=== PATIENT | female | born 1945 | race Caucasian/White ===

== ENCOUNTER 2017-12-16 05:47 | Observation (INO) | payer MEDICARE ==
[~2017-12-16] VITALS: Ht 154.9 cm; Wt 73.0 kg
[2017-12-16] VITALS (8 sets, daily range): BP systolic 110–134; BP diastolic 54–78; PULSE 71–87; RESP 15–18; TEMP 98.1–98.6; O2SAT 96–100
[~2017-12-16 05:47] MED LIST: AMLO5TAB96 PO; BIOT5000 PO; CO Q10CA PO; FERR324T4 PO; FLUO-1 PO; LEVO75TA3 PO; LORA-474 PO; LOVA40TA PO; MSM1000C4 PO; PRAM1 PO; PROT40TA PO; SUCR1S PO; SUCR1TAB PO; TOPR50TA PO; VITA100020 PO; VITA400T2 PO; XANA1TAB6 PO; ZOLE5P IV
[2017-12-16] MEDS ORDERED: GLUC15009 PO (06:13)
[2017-12-16] MEDS ORDERED: AZO-450T (06:13)
[2017-12-16] MEDS ORDERED: PRAM1TAB PO (06:13)
[2017-12-16] MEDS ORDERED: BIOTCAP PO (06:13)
[2017-12-16] MEDS ORDERED: AMLO10TA2 PO (06:13)
[2017-12-16] MEDS ORDERED: CIPR250T52 PO (06:13)
[2017-12-16] MEDS ORDERED: ATOR40TA16 PO (06:13)
[2017-12-16] MEDS ORDERED: LEVO75TA3 PO (06:13)
[2017-12-16] MEDS ORDERED: CITRTAB7 PO (06:13)
[2017-12-16] MEDS ORDERED: TEMA15CA PO (06:13)
[2017-12-16] MEDS ORDERED: PANTOPRAZOLE SODIUM 40 MG VIAL IVP ONE (06:15)
[2017-12-16] MEDS ORDERED: SODIUM CHLORIDE 0.9% FLUSH 10 ML FLUSH IV FLUSH PRN (06:15)
[2017-12-16] MEDS ORDERED: ONDANSETRON HCL 4 MG/2 ML VIAL IVP ONE (06:15)
[2017-12-16] MEDS ORDERED: SODIUM CHLOR 0.9% 1000 ML INJ 1,000 ML IV SCH ×2 (06:15→10:00)
[2017-12-16] MEDS ORDERED: SODIUM CHLORIDE 0.9% FLUSH 10 ML FLUSH IVF PRN (06:15)
--- NOTE | 2017-12-16 06:21 | PD ---
HPI Chief Complaint: GI Complaint Time Seen by Provider: 06:15 Travel History International Travel<30 days: No Contact w/Intl Traveler<30days: No Traveled to known affect area: No History of Present Illness HPI 72-year-old female patient with history of hypothyroidism, hypertension, gastric ulcer, had a cystoscopy and biopsy done for hematuria Sunday by Dr. Richards , yesterday started having abdominal cramping pains and diarrhea, noted that she had blood in her stools. She's been nauseous. She denies any fevers or any other symptoms. She denies any pain currently. She is not on any blood thinning medications Modifying Factors: None Associated Signs & Symptoms: Nausea, abdominal cramps, diarrhea, blood in the stools Risk Factors: History of gastric ulcer PFSH Past Medical History Arthritis: Yes Anxiety: Yes Depression: Yes Cancer: No Cardiovascular Problems: Yes (HTN, ) High Cholesterol: Yes Diabetes: No Diminished Hearing: No Endocrine: Yes Gastrointestinal Disorders: Yes GERD: Yes Genitourinary: No Hiatal Hernia: Yes (2011) Hypertension: Yes Immune Disorder: No Implanted Vascular Access Dvce: Yes Musculoskeletal: Yes Neurologic: Yes (RESTLESS LEG SYND) Psychiatric: Yes Reproductive: No Respiratory: No Sleep Apnea: Yes (CPAP) Thyroid Disease: Yes Ulcer: Yes Tetanus Vaccination: Unknown Influenza Vaccination: Yes Menopausal: Yes Past Surgical History Abdominal Surgery: Yes (GASTRIC BYPASS JUL 2012) AICD: No Body Medical Devices: RIGHT FOOT HARDWARE Gynecologic Surgery: Yes (HYSTERECTOMY) Hysterectomy: Yes Joint Replacement: No Oral Surgery: Yes (TONSILECTOMY) Pacemaker: No Tonsillectomy: Yes (CHILDHOOD) Other Surgery: Yes (BREAST REDUCTION AND TUMMY TUCK IN 1997) Social History Alcohol Use: Yes (OCC) Tobacco Use: No Substance Use: No Allergies-Medications (Allergen,Severity, Reaction): Coded Allergies: No Known Allergies (Verified Adverse Reaction, Unknown, 12/16/17) Reported Meds & Prescriptions Reported Meds & Active Scripts Active Reported Temazepam 15 Mg Cap 15 Mg PO HS PRN Glucosamine 1,500 Mg Tab 1,500 Mg PO DAILY Biotin 5 Mg Cap 5 Mg PO Citracal + D3 Maximum (Calcium Citrate-Vitamin D) 315-250 Mg-Unit Tab 1 Tab PO BID Atorvastatin (Atorvastatin Calcium) 40 Mg Tab 40 Mg PO HS Levothyroxine (Levothyroxine Sodium) 75 Mcg Tab 75 Mcg PO DAILY Pramipexole (Pramipexole Dihydrochloride) 1 Mg Tab 1 Mg PO HS Amlodipine (Amlodipine Besylate) 10 Mg Tab 10 Mg PO DAILY Cipro (Ciprofloxacin HCl) 250 Mg Tab 250 Mg PO BID Review of Systems Except as stated in HPI: all other systems reviewed are Neg Physical Exam Narrative GENERAL: Well-developed elderly white female patient currently in mild distress. Awake and oriented 3. SKIN: Focused skin assessment warm/dry. HEAD: Atraumatic. Normocephalic. EYES: Pupils equal and round. No scleral icterus. No injection or drainage. ENT: No nasal bleeding or discharge. Mucous membranes pink and moist. NECK: Trachea midline. No JVD. Supple. CARDIOVASCULAR: Regular rate and rhythm. No murmur appreciated. RESPIRATORY: No accessory muscle use. Clear to auscultation. Breath sounds equal bilaterally. GASTROINTESTINAL: Abdomen soft, non-tender, nondistended. Hepatic and splenic margins not palpable. RECTAL EXAM: No masses or tenderness, stool is reddish brown. Hemoccult positive. MUSCULOSKELETAL: No obvious deformities. No clubbing. No cyanosis. No edema. NEUROLOGICAL: Awake and alert. No obvious cranial nerve deficits. Motor grossly within normal limits. Normal speech. PSYCHIATRIC: Appropriate mood and affect; insight and judgment normal. Data Data Last Documented VS Vital Signs Date Time Temp Pulse Resp B/P (MAP) Pulse Ox O2 Delivery O2 Flow Rate FiO2 12/16/17 05:48 98.5 87 16 132/78 (96) 98 Room Air Orders Orders Complete Blood Count With Diff (12/16/17 06:08) Comprehensive Metabolic Panel (12/16/17 06:08) Lipase (12/16/17 06:08) Urinalysis - C+S If Indicated (12/16/17 06:08) Iv Access Insert/Monitor (12/16/17 06:08) Ecg Monitoring (12/16/17 06:08) Oximetry (12/16/17 06:08) Sodium Chloride 0.9% Flush (Ns Flush) (12/16/17 06:15) Prothrombin Time / Inr (Pt) (12/16/17 06:15) Act Partial Throm Time (Ptt) (12/16/17 06:15) Type And Screen (12/16/17 06:15) Ondansetron Inj (Zofran Inj) (12/16/17 06:15) Pantoprazole Inj (Protonix Inj) (12/16/17 06:15) Sodium Chlor 0.9% 1000 Ml Inj (Ns 1000 M (12/16/17 06:15) Sodium Chloride 0.9% Flush (Ns Flush) (12/16/17 06:15) Ct Abd/Pel W Iv Contrast(Rout) (12/16/17 06:18) Labs Laboratory Tests Test 12/16/17 06:15 White Blood Count 11.4 TH/MM3 Red Blood Count 4.92 MIL/MM3 Hemoglobin 13.7 GM/DL Hematocrit 42.3 % Mean Corpuscular Volume 85.8 FL Mean Corpuscular Hemoglobin 27.8 PG Mean Corpuscular Hemoglobin Concent 32.4 % Red Cell Distribution Width 15.2 % Platelet Count 294 TH/MM3 Mean Platelet Volume 8.1 FL Neutrophils (%) (Auto) 82.4 % Lymphocytes (%) (Auto) 9.2 % Monocytes (%) (Auto) 7.4 % Eosinophils (%) (Auto) 0.3 % Basophils (%) (Auto) 0.7 % Neutrophils # (Auto) 9.4 TH/MM3 Lymphocytes # (Auto) 1.1 TH/MM3 Monocytes # (Auto) 0.8 TH/MM3 Eosinophils # (Auto) 0.0 TH/MM3 Basophils # (Auto) 0.1 TH/MM3 CBC Comment DIFF FINAL Differential Comment MDM Medical Decision Making Medical Screen Exam Complete: Yes Emergency Medical Condition: Yes Medical Record Reviewed: Yes Interpretation(s) Laboratory Tests Test 12/16/17 06:15 White Blood Count 11.4 TH/MM3 (4.0-11.0) Neutrophils (%) (Auto) 82.4 % (16.0-70.0) Neutrophils # (Auto) 9.4 TH/MM3 (1.8-7.7) Differential Diagnosis GI bleed versus gastroenteritis versus perforation Narrative Course Patient is given Protonix, Zofran, and lab work and CAT scan was ordered for further evaluation. She is Hemoccult positive. HemaPrompt Point of Care Internal Pos. & Neg. Controls: Passed Fecal Specimen Occult Blood: Positive Physician Communication Physician Communication Case is signed out to oncoming physician at 7 AM pending workup. Disposition based on workup. Diagnosis Primary Impression: GI bleed Soontharothai,Rewadee MD Dec 16, 2017 06:21
[2017-12-16 06:46] LABS: AUTOMATED NEUTROPHIL # 9.4 TH/MM3 (1.8-7.7); BASOPHIL # 0.1 TH/MM3 (0-0.2); BASOPHIL % 0.7 % (0.0-2.0); EOSINOPHIL % 0.3 % (0.0-4.0); HEMATOCRIT 42.3 % (35.0-46.0); HEMOGLOBIN 13.7 GM/DL (11.6-15.3); LYMPH % 9.2 % (9.0-44.0); LYMPHOCYTE # 1.1 TH/MM3 (1.0-4.8); MEAN CELL VOLUME 85.8 FL (80.0-100.0); MEAN CORPUSCULAR HEMOGLOBIN 27.8 PG (27.0-34.0); MEAN CORPUSCULAR HGB CONC 32.4 % (32.0-36.0); MEAN PLATELET VOLUME 8.1 FL (7.0-11.0); MONO % 7.4 % (0.0-8.0); MONOCYTE # 0.8 TH/MM3 (0-0.9); NEUT % 82.4 % (16.0-70.0); PLATELET COUNT 294 TH/MM3 (150-450); RED BLOOD COUNT 4.92 MIL/MM3 (4.00-5.30); RED CELL DISTRIBUTION WIDTH 15.2 % (11.6-17.2); WHITE BLOOD COUNT 11.4 TH/MM3 (4.0-11.0)
[2017-12-16 07:00] LABS: PROTHROMBIN TIME - PATIENT 10.1 SEC (9.8-11.6)
[2017-12-16 07:14] LABS: BACTERIA, URINE FEW /hpf; BLOOD, URINE MOD (NEG); GLUCOSE,URINE NEG (NEG); HYALINE CAST, URINE 23 /lpf (RARE); KETONE, URINE NEG (NEG); MUCUS URINE MANY /lpf (OCC); NITRITE,URINE NEG (NEG); PH, URINE 5.5 (5.0-8.5); SQUAMOUS EPITHELIAL CELL URINE 12 /hpf (0-5); URINE COLOR YELLOW (YELLW/STRAW); URINE LEUKOCYTE ESTERASE LARGE (NEG)
[2017-12-16 07:17] LABS: BILIRUBIN, URINE NEG (NEG)
[2017-12-16 07:18] LABS: ALT (GPT) 30 U/L (10-53); AST (GOT) 23 U/L (15-37); BICARBONATE 27.5 MEQ/L (21.0-32.0); BLOOD UREA NITROGEN 24 MG/DL (7-18); CALCIUM 8.8 MG/DL (8.5-10.1); CHLORIDE 101 MEQ/L (98-107); GLUCOSE,RANDOM 136 MG/DL (74-106); LIPASE 134 U/L (73-393); SODIUM (NA) 136 MEQ/L (136-145)
[2017-12-16 07:20] LABS: ALKALINE PHOSPHATASE 76 U/L (45-117); CREATININE 1.21 MG/DL (0.50-1.00); GLOMERULAR FILTRATION RATE 43 ML/MIN (>89); TOTAL BILIRUBIN ADULT 0.6 MG/DL (0.2-1.0)
[2017-12-16] MEDS ORDERED: IOHEXOL 350 MG/ML 10 ML VIAL (for RAD DIAG) IVCONTRAST ONE (07:40)
[2017-12-16] MEDS ORDERED: cefTRIAXone INJ 1,000 MG in SODIUM CHLORIDE 0.9% INJ 100 ML IV ONE (07:45)
--- NOTE | 2017-12-16 07:57 | RADRPT ---
EXAM DATE/TIME: 12/16/2017 07:33 [facility] COMPARISON: No previous studies available for comparison. INDICATIONS : Nausea, bloody loose stool, post cystoscopy and biopsy 2 days ago. IV CONTRAST: 75 cc Omnipaque 350 (iohexol) IV ORAL CONTRAST: No oral contrast ingested. RADIATION DOSE: 9.43 CTDIvol (mGy) MEDICAL HISTORY : Hypertension. Gastroesophageal reflux disease. Chronic UTI's SURGICAL HISTORY : Hysterectomy. Gastric bypass, Breast reduction, tummy tuck ENCOUNTER: Initial ACUITY: 1 day PAIN SCALE: 6/10 LOCATION: abdomen TECHNIQUE: Volumetric scanning of the abdomen and pelvis was performed. Using automated exposure control and ad justment of the mA and/or kV according to patient size, radiation dose was kept as low as reasonably achievable to obtain optimal diagnostic quality images. DICOM format image data is available electro nically for review and comparison. FINDINGS: LOWER LUNGS: The visualized lower lungs are clear. LIVER: Homogeneous density without lesion. There is no dilation of the biliary tree. No calcified gallston es. SPLEEN: Normal size without lesion. PANCREAS: Within normal limits. KIDNEYS: Normal in size and shape. There is no mass, stone or hydronephrosis. ADRENAL GLANDS: Within normal limits. VASCULAR: Scattered other sclerosis. No evidence of aneurysm. BOWEL/MESENTERY: There is mild asymmetric wall thickening identified within the descending colon and sigmoid colon wit h mild asymmetric prominence of the vasculature within the mesentery adjacent to the descending and s igmoid colon. Findings are suggestive of inflammation or infection. The patient is status post prior gastric bypass. There is a small hiatal hernia present. The small bowel is unremarkable. ABDOMINAL WALL: Within normal limits. RETROPERITONEUM: There is no lymphadenopathy. BLADDER: No wall thickening or mass. REPRODUCTIVE: Uterus and ovaries are not visualized consistent with prior hysterectomy INGUINAL: There is no lymphadenopathy or hernia. MUSCULOSKELETAL: Degenerative changes.. CONCLUSION: Low prominence of the basal rectum involving the descending and sigmoid colon consistent with inflamm ation versus infection. No evidence of focal wall thickening, mass or abscess. Prema Wiley MD on December 16, 2017 at 7:47 Board Certified Radiologist. This report was verified electronically.
[2017-12-16] MEDS ORDERED: metroNIDAZOLE 500 MG INJ 100 ML IV ONE (08:15)
--- NOTE | 2017-12-16 08:56 | PD ---
Physical Exam Narrative GENERAL: Well-nourished, well-developed patient. SKIN: Warm and dry. HEAD: Normocephalic and atraumatic. EYES: No injection or drainage. ENT: No nasal drainage noted. NECK: Supple, trachea midline. CARDIOVASCULAR: Regular rate and rhythm RESPIRATORY: no increased effort. No accessory muscle use. GASTROINTESTINAL: Abdomen nondistended. NEUROLOGICAL: Awake and alert. moves all extremities and sensory grossly within normal limits. Normal speech. Data Data Last Documented VS Vital Signs Date Time Temp Pulse Resp B/P (MAP) Pulse Ox O2 Delivery O2 Flow Rate FiO2 12/16/17 07:14 81 16 127/62 (83) 100 12/16/17 05:48 98.5 Room Air Orders Orders Complete Blood Count With Diff (12/16/17 06:08) Comprehensive Metabolic Panel (12/16/17 06:08) Lipase (12/16/17 06:08) Urinalysis - C+S If Indicated (12/16/17 06:08) Iv Access Insert/Monitor (12/16/17 06:08) Ecg Monitoring (12/16/17 06:08) Oximetry (12/16/17 06:08) Sodium Chloride 0.9% Flush (Ns Flush) (12/16/17 06:15) Prothrombin Time / Inr (Pt) (12/16/17 06:15) Act Partial Throm Time (Ptt) (12/16/17 06:15) Type And Screen (12/16/17 06:15) Ondansetron Inj (Zofran Inj) (12/16/17 06:15) Pantoprazole Inj (Protonix Inj) (12/16/17 06:15) Sodium Chlor 0.9% 1000 Ml Inj (Ns 1000 M (12/16/17 06:15) Sodium Chloride 0.9% Flush (Ns Flush) (12/16/17 06:15) Ct Abd/Pel W Iv Contrast(Rout) (12/16/17 06:18) Urine Culture (12/16/17 06:40) Ceftriaxone Inj (Rocephin Inj) (12/16/17 07:45) Iohexol 350 Inj (Omnipaque 350 Inj) (12/16/17 07:40) Metronidazole 500 Mg Inj (Flagyl 500 Mg (12/16/17 08:15) Admit Order (Ed Use Only) (12/16/17 08:48) Labs Laboratory Tests Test 12/16/17 06:15 12/16/17 06:40 White Blood Count 11.4 TH/MM3 Red Blood Count 4.92 MIL/MM3 Hemoglobin 13.7 GM/DL Hematocrit 42.3 % Mean Corpuscular Volume 85.8 FL Mean Corpuscular Hemoglobin 27.8 PG Mean Corpuscular Hemoglobin Concent 32.4 % Red Cell Distribution Width 15.2 % Platelet Count 294 TH/MM3 Mean Platelet Volume 8.1 FL Neutrophils (%) (Auto) 82.4 % Lymphocytes (%) (Auto) 9.2 % Monocytes (%) (Auto) 7.4 % Eosinophils (%) (Auto) 0.3 % Basophils (%) (Auto) 0.7 % Neutrophils # (Auto) 9.4 TH/MM3 Lymphocytes # (Auto) 1.1 TH/MM3 Monocytes # (Auto) 0.8 TH/MM3 Eosinophils # (Auto) 0.0 TH/MM3 Basophils # (Auto) 0.1 TH/MM3 CBC Comment DIFF FINAL Differential Comment Prothrombin Time 10.1 SEC Prothromb Time International Ratio 1.0 RATIO Activated Partial Thromboplast Time 26.0 SEC Blood Urea Nitrogen 24 MG/DL Creatinine 1.21 MG/DL Random Glucose 136 MG/DL Total Protein 8.0 GM/DL Albumin 4.0 GM/DL Calcium Level 8.8 MG/DL Alkaline Phosphatase 76 U/L Aspartate Amino Transf (AST/SGOT) 23 U/L Alanine Aminotransferase (ALT/SGPT) 30 U/L Total Bilirubin 0.6 MG/DL Sodium Level 136 MEQ/L Potassium Level 4.1 MEQ/L Chloride Level 101 MEQ/L Carbon Dioxide Level 27.5 MEQ/L Anion Gap 8 MEQ/L Estimat Glomerular Filtration Rate 43 ML/MIN Lipase 134 U/L Urine Color YELLOW Urine Turbidity HAZY Urine pH 5.5 Urine Specific [place] 1.028 Urine Protein 30 mg/dL Urine Glucose (UA) NEG mg/dL Urine Ketones NEG mg/dL Urine Occult Blood MOD Urine Nitrite NEG Urine Bilirubin NEG Urine Urobilinogen 2.0 MG/DL Urine Leukocyte Esterase LARGE Urine RBC 41 /hpf Urine WBC 46 /hpf Urine Squamous Epithelial Cells 12 /hpf Urine Bacteria FEW /hpf Urine Hyaline Casts 23 /lpf Urine Granular Casts 3 /lpf Urine Mucus MANY /lpf Microscopic Urinalysis Comment CULTURE INDICATED MDM Supervised Visit with [facility]: No Interpretation(s) CBC & BMP Diagram 12/16/17 06:15 Total Protein 8.0, Albumin 4.0, Calcium Level 8.8, Alkaline Phosphatase 76, Aspartate Amino Transf (AST/SGOT) 23, Alanine Aminotransferase (ALT/SGPT) 30, Total Bilirubin 0.6 Last 24 hours Impressions Abdomen/Pelvis CT 12/16/17 0618 Signed Impressions: Service Date/Time: Saturday, December 16, 2017 07:33 - CONCLUSION: Low prominence of the basal rectum involving the descending and sigmoid colon consistent with inflammation versus infection. No evidence of focal wall thickening, mass or abscess. Prema Wiley MD Narrative Course On workup patient has elevation of BUN and creatinine and patient does not recall prior history of this. She was given IV fluids. CT shows inflammation versus infection of rectum. She was given ciprofloxacin and Flagyl. Dr. Cevallos is her GI specialist. She was updated and agrees to observation. Physician Communication Physician Communication dr colbert agrees to admit Diagnosis Primary Impression: GI bleed Qualified Codes: K92.2 - Gastrointestinal hemorrhage, unspecified Additional Impression: Renal insufficiency Admitting Information Admitting Physician Requests: Observation Jenniffer Saez MD Dec 16, 2017 08:56
[2017-12-16] MEDS ORDERED: ONDANSETRON HCL 4 MG/2 ML VIAL IV PUSH PRN (09:45)
[2017-12-16] MEDS ORDERED: MORPHINE SULFATE 4 MG/ML INJ IV PUSH PRN (09:45)
--- NOTE | 2017-12-16 10:04 | HHI.HP ---
[facility] Service [facility] Primary Care Physician Bridger Montes M.D. Admission Diagnosis rectal bleeding, renal insuffiency Diagnoses: (1) GI bleed Travel History International Travel<30 Days: No Contact w/Intl Traveler <30 Da: No Traveled to Known Affected Are: No History of Present Illness 72F with onset of bright red blood per rectum that began yesterday evening and persisted through the night. She had a cystoscopy on Sunday and is concerned for perforated bladder, though work up so far does not seem to indicate that. She has a distant history of bleeding stomach ulcers that required transfusion, but the pattern of bleeding including dripping onto floor and bloody diarrhea seems to indicate rectal bleeding this time. She denies any severe abdominal pain, denies dyspnea or chest pain. Diagnosed with UTI as outpatient, taking Cipro 250mg on home meds. Patient states she is established with [facility]. Review of Systems Constitutional: DENIES: Fever Endocrine: DENIES: Polydipsia, Polyuria Eyes: DENIES: Blurred vision, Diplopia, Vision loss Ears, nose, mouth, throat: DENIES: Tinnitus, Vertigo, Epistaxis Respiratory: DENIES: Hemoptysis Cardiovascular: DENIES: Chest pain, Palpitations, Syncope Gastrointestinal: COMPLAINS OF: Abdominal pain, Bloody stools, Diarrhea, DENIES : Black stools, Constipation, Nausea, Vomiting Musculoskeletal: DENIES: Joint pain, Stiffness Integumentary: DENIES: Rash Hematologic/lymphatic: DENIES: Bruising, Lymphadenopathy Neurologic: DENIES: Abnormal gait, Localized weakness, Poor Balance Psychiatric: DENIES: Anxiety, Confusion, Mood changes Past Family Social History Past Medical History Hypertension Dislipidemia Restless Leg Syndrome Past Surgical History Right Foot Fusion 2010 Hysterectomy 1988 Breast Reduction w/ Tummy Ashok Allergies: Coded Allergies: No Known Allergies (Verified Allergy, Unknown, 12/16/17) Family History Osteoarthritis Social History Denies tobacco or alcohol use Physical Exam Vital Signs Vital Signs Date Time Temp Pulse Resp B/P (MAP) Pulse Ox O2 Delivery O2 Flow Rate FiO2 12/16/17 09:33 73 15 110/57 (74) 100 Room Air 1/28/18 07:14 81 16 127/62 (83) 100 12/16/17 05:48 98.5 87 16 132/78 (96) 98 Room Air Physical Exam GENERAL: This is a well-nourished, well-developed patient, in no apparent distress. SKIN: No rashes, ecchymoses or lesions. Cool and dry. HEAD: Atraumatic. Normocephalic. No temporal or scalp tenderness. EYES: Pupils equal round and reactive. Extraocular motions intact. No scleral icterus. No injection or drainage. ENT: Nose without bleeding, purulent drainage or septal hematoma. Throat without erythema, tonsillar hypertrophy or exudate. Uvula midline. Airway patent. NECK: Trachea midline. No JVD or lymphadenopathy. Supple, nontender, no meningeal signs. CARDIOVASCULAR: Regular rate and rhythm without murmurs, gallops, or rubs. RESPIRATORY: Clear to auscultation. Breath sounds equal bilaterally. No wheezes , rales, or rhonchi. GASTROINTESTINAL: Abdomen soft, non-tender, nondistended. No hepato-splenomegaly , or palpable masses. No guarding. MUSCULOSKELETAL: Extremities without clubbing, cyanosis, or edema. No joint tenderness, effusion, or edema noted. No calf tenderness. Negative Homans sign bilaterally. NEUROLOGICAL: Awake and alert. Cranial nerves II through XII intact. Motor and sensory grossly within normal limits. Five out of 5 muscle strength in all muscle groups. Normal speech. Laboratory Laboratory Tests Test 12/16/17 06:15 12/16/17 06:40 White Blood Count 11.4 Red Blood Count 4.92 Hemoglobin 13.7 Hematocrit 42.3 Mean Corpuscular Volume 85.8 Mean Corpuscular Hemoglobin 27.8 Mean Corpuscular Hemoglobin Concent 32.4 Red Cell Distribution Width 15.2 Platelet Count 294 Mean Platelet Volume 8.1 Neutrophils (%) (Auto) 82.4 Lymphocytes (%) (Auto) 9.2 Monocytes (%) (Auto) 7.4 Eosinophils (%) (Auto) 0.3 Basophils (%) (Auto) 0.7 Neutrophils # (Auto) 9.4 Lymphocytes # (Auto) 1.1 Monocytes # (Auto) 0.8 Eosinophils # (Auto) 0.0 Basophils # (Auto) 0.1 CBC Comment DIFF FINAL Differential Comment Prothrombin Time 10.1 Prothromb Time International Ratio 1.0 Activated Partial Thromboplast Time 26.0 Blood Urea Nitrogen 24 Creatinine 1.21 Random Glucose 136 Total Protein 8.0 Albumin 4.0 Calcium Level 8.8 Alkaline Phosphatase 76 Aspartate Amino Transf (AST/SGOT) 23 Alanine Aminotransferase (ALT/SGPT) 30 Total Bilirubin 0.6 Sodium Level 136 Potassium Level 4.1 Chloride Level 101 Carbon Dioxide Level 27.5 Anion Gap 8 Estimat Glomerular Filtration Rate 43 Lipase 134 Urine Color YELLOW Urine Turbidity HAZY Urine pH 5.5 Urine Specific [place] 1.028 Urine Protein 30 Urine Glucose (UA) NEG Urine Ketones NEG Urine Occult Blood MOD Urine Nitrite NEG Urine Bilirubin NEG Urine Urobilinogen 2.0 Urine Leukocyte Esterase LARGE Urine RBC 41 Urine WBC 46 Urine Squamous Epithelial Cells 12 Urine Bacteria FEW Urine Hyaline Casts 23 Urine Granular Casts 3 Urine Mucus MANY Microscopic Urinalysis Comment CULTURE INDICATED Date/Time Source Procedure Growth Status 12/16/17 06:40 Urine Clean Catch Urine Culture Pending Received Result Diagram: 12/16/1761412/16/17614 Imaging Last Impressions Abdomen/Pelvis CT 12/16/17617 Signed Impressions: Service Date/Time: Saturday, December 16, 2017 07:33 - CONCLUSION: Low prominence of the basal rectum involving the descending and sigmoid colon consistent with inflammation versus infection. No evidence of focal wall thickening, mass or abscess. MD Erika Zee VTE Risk Assessment Caprini VTE Risk Assessment: Mod/High Risk (score >= 2) Caprini Risk Assessment Model Point Value = 1 Point Value = 2 Point Value = 3 Point Value = 5 Age 41-60 Minor surgery BMI > 25 kg/m2 Swollen legs Varicose veins or History of unexplained or recurrent spontaneous Oral contraceptives or hormone replacement Sepsis (< 1 month) Serious lung disease, including pneumonia (< 1 month) Abnormal pulmonary function Acute myocardial infarction Congestive heart failure (< 1 month) History of inflammatory bowel disease Medical patient at bed rest Age 61-74 Arthroscopic surgery Major open surgery (> 45 min) Laparoscopic surgery (> 45 min) Malignancy Confined to bed (> 72 hours) Immobilizing plaster cast Central venous access Age >= 75 History of VTE Family history of VTE Factor V Leiden Prothrombin [id number] Lupus anticoagulant Anticardiolipin antibodies Elevated serum homocysteine Heparin-induced thrombocytopenia Other congenital or acquired thrombophilia Stroke (< 1 month) Elective arthroplasty Hip, pelvis, or leg fracture Acute spinal cord injury (< 1 month) Prophylaxis Regimen Total Risk Factor Score Risk Level Prophylaxis Regimen 0-1 Low Early ambulation 2 Moderate Order ONE of the following: *Sequential Compression Device (SCD) *Heparin 5000 units SQ BID 3-4 Higher Order ONE of the following medications: *Heparin 5000 units SQ TID *Enoxaparin/Lovenox 40 mg SQ daily (WT < 150 kg, CrCl > 30 mL/min) *Enoxaparin/Lovenox 30 mg SQ daily (WT < 150 kg, CrCl > 10-29 mL/min) *Enoxaparin/Lovenox 30 mg SQ BID (WT < 150 kg, CrCl > 30 mL/min) AND/OR *Sequential Compression Device (SCD) 5 or more Highest Order ONE of the following medications: *Heparin 5000 units SQ TID (Preferred with Epidurals) *Enoxaparin/Lovenox 40 mg SQ daily (WT < 150 kg, CrCl > 30 mL/min) *Enoxaparin/Lovenox 30 mg SQ daily (WT < 150 kg, CrCl > 10-29 mL/min) *Enoxaparin/Lovenox 30 mg SQ BID (WT < 150 kg, CrCl > 30 mL/min) AND *Sequential Compression Device (SCD) Assessment and Plan Problem List: (1) GI bleed ICD Code: K92.2 - Gastrointestinal hemorrhage, unspecified Status: Acute Assessment and Plan Rectal Bleed Significant blood loss at home, Hgb so far stable, no current bleeding CT points to thickening of rectal wall, irritation vs. infection GI consulted ([facility], Dr. Cevallos) Monitor H&H later today, then again in a.m. Clear Liquids ok for now, NPO overnight if colonoscopy planned for the a.m. Telemetry h/o Hypertension Monitor, IV meds if needed Resume PO meds when NPO lifted h/o Hypothyroidism, Dyslipidemia, Restless Leg Syndrome Resume home meds when NPO lifted DVT Prophylaxis SCD hose No anticoagulants due to current GI bleed Code Status Full Code Problem Qualifiers (1) GI bleed: Qualified Codes: K92.2 - Gastrointestinal hemorrhage, unspecified Reji Fisher MD Dec 16, 2017 10:04
[2017-12-16] MEDS ORDERED: PEG (High)/E-LYTE SOLN 4000 ML BTL PO ONE ×2 (13:15→17:30)
--- NOTE | 2017-12-16 13:48 | MB ---
cc: GALI GARCIA M.D., GREGORY A. MD HERDEL, GEORGE F. M.D. DATE OF : 1945 DATE OF CONSULTATION: 12/16/2017 REASON FOR CONSULTATION: HISTORY OF PRESENT ILLNESS: The patient is a 72-year-old white female well-known to me who underwent cystoscopy two days ago because of hematuria. She was given intravenous ciprofloxacin on that day and then was told to continue oral ciprofloxacin. Yesterday morning at about 11 o'clock she started having significant central and left lower abdominal pain with patches of loose stool followed by multiple episodes of bloody watery diarrheal stool, some chills and diaphoresis, but no fever. No prior episodes similar to this. She came into the hospital this morning and after receiving some intravenous fluids, antibiotics and pain medicine, she feels better now. No prior history similar to this. No history of colitis. Her last colonoscopy was performed almost five years ago because of a history of colon polyps. She is actually due for her routine colonoscopy in the near future. PAST MEDICAL HISTORY: Significant for: 1. Hypertension. 2. Hyperlipidemia. 3. Restless leg syndrome. PAST SURGICAL HISTORY: 1. Hysterectomy in 1987. 2. Breast reduction with a tummy tuck. 3. Right foot fusion in 2009. 4. Recent cystoscopy. 5. Gastric bypass in 2009. 6. Subsequent to that she did have some anastomotic ulcerations but she has been on Sucralfate ever since with no recurrence of problems and she avoids nonsteroidal anti-inflammatory drugs. MEDICATIONS Here in the hospital she was given: 1. Ceftriaxone. 2. Protonix 40 mg orally. 3. Amlodipine 10 milligrams. 4. Levothyroxine for hypothyroidism. 5. Atorvastatin for her hyperlipidemia. 6. Mirapex. 7. Morphine p.r.n. ALLERGIES None known to medications. SOCIAL HISTORY: Tobacco use none. Alcohol use none. FAMILY HISTORY Diverticular disease and osteoarthritis. REVIEW OF SYSTEMS She has had no headaches or vision difficulties. No seizures or strokes. No dysphagia or odynophagia. No early satiety or weight loss. No arthritic complaints. No rashes. No history of liver disease or diabetes. No pancreatic disorders. She has had no unexplained weight loss. PHYSICAL EXAMINATION Her weight is 73 kg, temperature 98.5, pulse 71, respiratory 15, blood pressure 134/63. Oxygen saturation 100% on room air. She is alert. She is oriented x3. She is anicteric. She has no appreciable distress at this time. HEENT: Extraocular motions are intact. She is anicteric. I appreciate no submandibular, cervical, supraclavicular, axillary or epitrochlear adenopathy. Lungs: Clear to auscultation. Heart: Heart exam, regular rate and rhythm with a 1-2/6 murmur. Abdominal exam: Good bowel sounds with no appreciable bruit. The abdomen is soft and nontender at this time. No masses or hepatosplenomegaly noted. Extremities: No pedal edema, Dupuytren's contractures or palmar erythema. LABORATORY STUDIES: This morning white count 11.4, hemoglobin 13.7, platelets 294, INR 1.0, sodium 136, potassium 4.1, BUN 24, creatinine 1.21. Liver enzymes and lipase all normal. Urinalysis: large amount of leukocyte esterase with 41 red cells and 46 white cells, 23 hyaline casts and increased protein excretion with moderate occult blood. IMAGING STUDIES: I reviewed the CT scan with the radiologist which shows thickening of the left colon, though the rectum itself is not thickened. IMPRESSION/PLAN Bloody diarrhea with abdominal pain in this patient who receives ciprofloxacin intravenously and orally. We discussed the small possibility of C. difficile colitis (about 5% of the time this will present with bloody diarrhea, but usually it is nonbloody). We discussed ischemic colitis, though she does not think she became dehydrated (although her BUN and creatinine are elevated suggesting a degree of dehydration as she has no history of chronic renal disorder). Food poisoning process with an organism causing hemorrhagic colitis is rare. She knows of no other contacts with similar symptoms after eating with her two days ago. At this point she will continue her intravenous fluids, will check stool for C. Difficile. Will schedule colonoscopy for tomorrow. I have reviewed the procedure with her, including potential risks of medication reaction, bleeding, perforation and a small chance of missing a lesion. She agrees to proceed with this plan. MD JAMES Blackwood/GUANAKO /12:56 PM /1:30 PM
[2017-12-16] MEDS ORDERED: ATORVASTATIN 40 MG TAB PO SCH (21:00)
[2017-12-16] MEDS ORDERED: PRAMIPEXOLE DIHYDROCHLORIDE 1 MG TAB PO SCH (21:00)
[2017-12-17 04:00] VITALS: BP 108/67; PULSE 58; RESP 18; TEMP 98.7; O2SAT 98
[2017-12-17] MEDS ORDERED: LEVOTHYROXINE SODIUM 75 MCG TAB PO SCH (06:00)
[2017-12-17 07:28] VITALS: BP 131/63; PULSE 97; RESP 18; TEMP 97.8; O2SAT 98
[2017-12-17] MEDS ORDERED: PEG (High)/E-LYTE SOLN 4000 ML BTL PO ONE (09:00)
[2017-12-17] MEDS ORDERED: PANTOPRAZOLE SOD 40 MG DELAYED RELEASE TAB PO SCH (09:00)
--- NOTE | 2017-12-17 09:58 | HHI.PR ---
Subjective Remarks Follow-up for bright red blood per rectum. Patient is currently doing well. She is preparing for colonoscopy. She has persistent diarrhea likely due to GoLYTELY use. No fever or chills. She denies any chest pain, shortness of breath. Denies any dysuria. She underwent cystoscopy due to hematuria recently prior to this hospitalization. Objective Vitals Vital Signs Date Time Temp Pulse Resp B/P (MAP) Pulse Ox O2 Delivery O2 Flow Rate FiO2 12/17/17 07:28 97.8 97 18 131/63 (85) 98 12/17/17 04:00 98.7 58 18 108/67 (81) 98 12/16/17 23:15 98.4 80 18 115/54 (74) 97 12/16/17 22:50 97 21 12/16/17 21:13 98.1 80 18 121/65 (83) 96 12/16/17 17:11 98.6 76 18 122/60 (80) 98 12/16/17 10:38 71 15 134/63 (86) 100 Room Air I/O 12/16/17 12/16/17 12/16/17 12/17/17 12/17/17 12/17/17 07:00 15:00 23:00 07:00 15:00 23:00 Intake Total 1200 ml Balance 1200 ml Intake IV Total 1200 ml Result Diagram: 12/16/17 1724 12/16/1715 Imaging Last Impressions Abdomen/Pelvis CT 12/16/1718 Signed Impressions: Service Date/Time: Saturday, December 16, 2017 07:33 - CONCLUSION: Low prominence of the basal rectum involving the descending and sigmoid colon consistent with inflammation versus infection. No evidence of focal wall thickening, mass or abscess. Prema Wiley MD Objective Remarks GENERAL: Alert, oriented 3, NAD. SKIN: Warm and dry. HEAD: Normocephalic. EYES: No scleral icterus. No injection or drainage. NECK: Supple, trachea midline. No JVD or lymphadenopathy. CARDIOVASCULAR: Regular rate and rhythm without murmurs, gallops, or rubs. RESPIRATORY: Breath sounds equal bilaterally. No accessory muscle use. GASTROINTESTINAL: Abdomen soft, non-tender, nondistended. MUSCULOSKELETAL: No cyanosis, or edema. BACK: Nontender without obvious deformity. No CVA tenderness. Procedures None A/P Problem List: (1) GI bleed ICD Code: K92.2 - Gastrointestinal hemorrhage, unspecified Status: Acute (2) Bacteriuria ICD Code: R82.71 - Bacteriuria Assessment and Plan Ms. Foster is a pleasant 72-year-old female with a recent cystoscopy for hematuria who presented to the emergency department on 12/16/2017 due to bright red blood per rectum. She also had significant left lower quadrant abdominal pain. GI evaluated patient and recommended colonoscopy. - Acute lower GI bleed - Patient's hemoglobin numbers are 13.7, 12.2. - Colonoscopy is scheduled today. - We checked C. Diff PCR which is Negative. - Protonix 40 mg daily - Acute kidney injury - Creatinine 1.21. Baseline below 1.0. - Continue gentle hydration with normal saline. - Bacteriuria - Patient does not report any dysuria. She recently underwent urological procedure - Continue ceftriaxone 1 g every 24 hours. - Hypertension - Hypothyroidism - Hyperlipidemia - Continue amlodipine 10 mg daily, levothyroxine 75 g every morning - Continue atorvastatin 40 mg daily at bedtime Full code. Ambulation. SCDs. Problem Qualifiers (1) GI bleed: Qualified Codes: K92.2 - Gastrointestinal hemorrhage, unspecified Cristy Redd DO Dec 17, 2017 9:58 am
[2017-12-17] MEDS ORDERED: cefTRIAXone INJ 1,000 MG in SODIUM CHLORIDE 0.9% INJ 100 ML IV SCH (10:00)
[2017-12-17 12:00] VITALS: BP 135/65; PULSE 81; RESP 20; TEMP 95.9; O2SAT 100
[2017-12-17] MEDS ORDERED: LACTATED RINGER'S 1000 ML IV PRN (15:15)
[2017-12-17] MEDS ORDERED: SODIUM CHLORID 0.9% 500 ML IV PRN (15:15)
[2017-12-17] MEDS ORDERED: CHLORHEXIDINE GLUCONATE 2 % 1 PACK (2 CLOTHS) TOPICAL PRN (15:15)
[2017-12-17] MEDS ORDERED: METOPROLOL TARTRATE 25 MG TAB PO PRN (15:15)
[2017-12-17] MEDS ORDERED: INSULIN HUMAN REGULAR 1,000 UNITS/10 ML VIAL SQ PRN (15:15)
[2017-12-17] MEDS ORDERED: POVIDONE IODINE 5% (ANTISEPSIS KIT) 4 APPLICATIONS EACH NARE PRN (15:15)
--- NOTE | 2017-12-17 15:32 | GIPROC ---
[facility] [address] [facility]. [facility], [address] COLONOSCOPY PROCEDURE REPORT EXAM DATE: 12/17/2017 PATIENT NAME: Barbara Foster MR #: [id number] BIRTHDATE: 1945 ENDOSCOPIST: Robe Cevallos MD ORDER #: [id number] BROKE MAN: STATUS: inpatient INDICATIONS: The patient is a 72 yr old female here for a colonoscopy due to painfjul, crampy, bloody diarrhea. PROCEDURE PERFORMED: Sigmoidoscopy, biopsy MEDICATIONS: Per Anesthesia. PREP QUALITY: good ESTIMATED BLOOD LOSS: None CONSENT: The patient understands the risks and benefits of the procedure and understands that these risks include, but are not limited to: sedation, allergic reaction, infection, perforation and/or bleeding. Alternative means of evaluation and treatment include, among others: physical exam, x-rays, and/or surgical intervention. The patient elects to proceed with this endoscopic procedure. medical equipment was checked for proper function. Hand hygiene and appropriate measures for infection prevention was taken. After the risks, benefits and alternatives of the procedure were thoroughly explained, Informed consent was verified, confirmed and timeout was successfully executed by the treatment team. A digital exam revealed no abnormalities of the rectum The Pentax [id number] endoscope was introduced through the anus and advanced to the sigmoid colon. The instrument was then slowly withdrawn as the colon was fully examined. COLON FINDINGS: Erythema, edema, shallow ulcerations were noted from 20cm to 40cm; the significant edema prevented further safe insertion of the (stiff Pentax) colonoscope. A diffuse circumferential patch of colitis was found in the sigmoid colon. The mucosa was edematous, erythematous, friable and ulcerated. This is consistent with ischemic colitis disease. Multiple biopsies of the area were performed using cold forceps. Retroflexion was performed and was normal The scope was then completely withdrawn from the patient and the procedure terminated. ADVERSE EVENTS: There were no complications. IMPRESSIONS: 1. Erythema, edema, shallow ulcerations were noted from 20cm to 40cm; the significant edema prevented further safe insertion of the (stiff Pentax) colonoscope 2. Diffuse circumferential colitis was found in the sigmoid colon; The mucosa was edematous, erythematous, friable and ulcerated; This is consistent with ischemic colitis.; multiple biopsies of the area were performed using cold forceps 3. Retroflexion was performed and was normal 4. Revealed no abnormalities of the rectum RECOMMENDATIONS: OK to D/C home on a low residue (low fiber) diet and with consumption of at least 2 quarts of liquid/day. Follow up with me in 2 weeks. RECALL: Robe Cevallos MD eSigned: Robe Cevallos MD 12/17/2017 3:31 PM cc: Suman Montes M.D.
[2017-12-17 16:00] VITALS: BP 161/72; PULSE 80; RESP 20; TEMP 95.3; O2SAT 100
[2017-12-17] MEDS ORDERED: CIPR250T52 PO (16:53)
[2017-12-17] MEDS ORDERED: PANT40TA3 PO (16:53)
--- NOTE | 2017-12-17 16:58 | HHI.DCPOC ---
Discharge Care Plan Diagnosis: (1) Colitis Goals to Promote Your Health * To prevent worsening of your condition and complications * To maintain your health at the optimal level Directions to Meet Your Goals Take your medications as prescribed Follow your dietary instruction Follow activity as directed Keep your appointments as scheduled Take your immunizations and boosters as scheduled If your symptoms worsen call your PCP, if no PCP go to Urgent Care Center or Emergency Room Smoking is Dangerous to Your Health. Avoid second hand smoke Call the 24-hour hour crisis hotline for domestic abuse at Tabitha Montiel PA-C Dec 17, 2017 16:58
== END 2017-12-17 18:14 | disposition home or self-care (01) ==
LOC: NEPC 05:47 → NEDA 08:50 → NEPFCDU 10:50
PROVIDERS: ADMIT Hospitalist; ATTEND Hospitalist
DX: K55.9 Vascular disorder of intestine, unspecified (principal); K52.9 Noninfective gastroenteritis and colitis, unspecified; I10 Essential (primary) hypertension; E78.00 Pure hypercholesterolemia, unspecified; K21.9 Gastro-esophageal reflux disease without esophagitis; G25.81 Restless legs syndrome; R11.0 Nausea; G47.30 Sleep apnea, unspecified; N39.0 Urinary tract infection, site not specified; E07.9 Disorder of thyroid, unspecified; E78.5 Hyperlipidemia, unspecified; E03.9 Hypothyroidism, unspecified; R31.9 Hematuria, unspecified; Z99.81 Dependence on supplemental oxygen; Z98.84 Bariatric surgery status; Z87.11 Personal history of peptic ulcer disease
CPT/HCPCS: 00811; 45331; 74177; 80053; 81001; 83690; 85018; 85025; 85610; 85730; 86850; 86900; 86901; 87086; 87493; 88305; 96361; 96365; 96366; 96375; 99285; C9113; G0378; J0696; J2405; J7030; Q9967